=== PATIENT | male | born 1945 | race Caucasian/White ===

== ENCOUNTER 2020-11-05 18:12 | Emergency (ER) | payer OTHER ==
[~2020-11-05] VITALS: Ht 182.9 cm; Wt 118.2 kg
[2020-11-05] MEDS ORDERED: SODIUM CHLORIDE 0.9% 1,700 ML IV ONE (19:15)
[2020-11-05] MEDS ORDERED: CefTRIAXone 1 GM/DEXTROSE 50 ML IV ONE (19:15)
[2020-11-05] MEDS ORDERED: SODIUM CHLORIDE 0.9% 1,000 ML IV ONE (19:15)
[2020-11-05 19:21] LABS: COVID AG,FIA SOURCE NASOPHARYNGEAL
[2020-11-05 19:25] LABS: BASOPHILS % (AUTO) 0.3 % (0.0-2.0); EOSINOPHILS % (AUTO) 0 % (1.0-6.0); HEMATOCRIT 36.6 % (41-53); LYMPHOCYTES # (AUTO) 0.7 K/uL (1.0-4.8); LYMPHOCYTES % (AUTO) 3.8 % (22.0-44.0); MEAN CORPUSCULAR HEMOGLOBIN 32.3 pg (26.0-34.0); MEAN CORPUSCULAR HGB CONC 32.8 G/dL (31.0-37.0); MEAN CORPUSCULAR VOLUME 98 fL (80-100); MONOCYTES # (AUTO) 1.4 K/uL (0.1-1.0); MONOCYTES % (AUTO) 7.8 % (2.0-9.0); NEUTROPHILS # (AUTO) 16.3 K/uL (1.8-7.7); PLATELET COUNT (AUTO) 294 K/uL (150-450); RED BLOOD CELL COUNT(AUTO) 3.72 MIL/uL (4.50-5.90)
[2020-11-05 19:27] LABS: NEUTROPHILS % (AUTO) 88.1 % (40.0-70.0)
[2020-11-05 19:35] LABS: CALCIUM, TOTAL 8.8 mg/dL (8.8-10.5); CREATININE 1.63 mg/dL (0.60-1.30); POTASSIUM 4.8 mmol/L (3.5-5.1)
[2020-11-05 19:56] LABS: PLATELET MORPHOLOGY COMMENT LARGE PLTS PRESENT
[2020-11-05 20:01] LABS: ALBUMIN 2.7 g/dL (3.4-5.0); BILIRUBIN,TOTAL 0.9 mg/dL (0.1-1.0); TOTAL PROTEIN, SERUM 7.8 g/dL (6.4-8.2)
[2020-11-05] MEDS ORDERED: ASPIRIN 325 MG TABLET PO ONE (20:30)
[2020-11-05] MEDS ORDERED: AZITHROMYCIN 500 MG/NS 250 ML IV ONE (20:30)
[2020-11-05 21:25] LABS: INFLUENZA TYPE A NEGATIVE FOR TYPE A (NEGATIVE); INFLUENZA TYPE B NEGATIVE FOR TYPE B (NEGATIVE)
[2020-11-05 21:38] VITALS: BP 119/75
[2020-11-05] MEDS ORDERED: ACETAMINOPHEN 500 MG TABLET ONE (21:47)
[2020-11-05] MEDS ORDERED: ACETAMINOPHEN 500 MG TABLET PO ONE (22:00)
[2020-11-06 00:10] LABS: GLUCOSE,POINT OF CARE 220 MG/DL (70-110)
== END 2020-11-06 00:50 | disposition short-term general hospital (02) ==
LOC: EMS 18:14
DX: A41.9 Sepsis, unspecified organism (principal); R65.20 Severe sepsis without septic shock; I50.9 Heart failure, unspecified; N17.9 Acute kidney failure, unspecified; E11.65 Type 2 diabetes mellitus with hyperglycemia; J18.9 Pneumonia, unspecified organism; R77.8 Other specified abnormalities of plasma proteins; E44.0 Moderate protein-calorie malnutrition; Z20.822 Contact with and (suspected) exposure to COVID-19; Z68.35 Body mass index [BMI] 35.0-35.9, adult; Z86.73 Personal history of transient ischemic attack (TIA), and cerebral infarction without residual deficits
CPT/HCPCS: 36415; 71045; 80053; 82550; 82962; 83605; 83690; 83880; 84484; 85025; 87040; 87426; 87804; 93005; 99291; J0456; J0696; J7030; 96365; 96367

== ENCOUNTER 2024-01-15 15:47 | Emergency (ER) | payer OTHER ==
[~2024-01-15] VITALS: Ht 182.9 cm; Wt 100.0 kg
[2024-01-15 15:56] VITALS: TEMP 98.3
[2024-01-15] MEDS ORDERED: LISI-893 PO (16:05)
[2024-01-15] MEDS ORDERED: ATOR40TA28 PO (16:05)
[2024-01-15] MEDS ORDERED: TAMS0.4C94 PO (16:05)
[2024-01-15] MEDS ORDERED: MULT9LIQ7 PO (16:05)
[2024-01-15] MEDS ORDERED: METO50 PO (16:05)
[2024-01-15] MEDS ORDERED: CHOL500043 PO (16:05)
[2024-01-15] MEDS ORDERED: FINA-27 PO (16:05)
[2024-01-15] MEDS ORDERED: DABI150C2 PO (16:05)
[2024-01-15] MEDS ORDERED: CYAN-119 PO (16:05)
[2024-01-15] MEDS ORDERED: FURO40TA6 PO (16:05)
[2024-01-15 19:15] LABS: APPEARANCE,URINE TURBID (CLEAR); BILIRUBIN,URINE NEGATIVE (NEGATIVE); COLOR,URINE YELLOW (YELLOW); GLUCOSE, URINE (UA) 150-200 mg/dL (NEGATIVE); KETONES,URINE NEGATIVE (NEGATIVE); LEUKOCYTE ESTERASE ,URINE LARGE (NEGATIVE); NITRATE,URINE POSITIVE (NEGATIVE); OCCULT BLOOD,URINE LARGE (NEGATIVE); PH,URINE 7.5 (5.0-8.0); PROTEIN,URINE 100-200,SEE CONFIRM mg/dL (NEGATIVE); UROBILINOGEN,URINE <=1.0 mg/dL (<=1.0)
[2024-01-15 19:35] LABS: CALCIUM, TOTAL 9.1 mg/dL (8.8-10.5); CREATININE 1.89 mg/dL (0.60-1.30)
[2024-01-15 19:40] LABS: BASOPHILS % (AUTO) 0.5 % (0.0-2.0); EOSINOPHILS % (AUTO) 0.1 % (1.0-6.0); HEMATOCRIT 41.6 % (41-53); HEMOGLOBIN 13.9 g/dL (13.5-17.5); LYMPHOCYTES # (AUTO) 0.7 K/uL (1.0-4.8); LYMPHOCYTES % (AUTO) 4.6 % (22.0-44.0); MEAN CORPUSCULAR HEMOGLOBIN 33.1 pg (26.0-34.0); MEAN CORPUSCULAR HGB CONC 33.3 G/dL (31.0-37.0); MEAN CORPUSCULAR VOLUME 100 fL (80-100); NEUTROPHILS # (AUTO) 12.9 K/uL (1.8-7.7); PLATELET COUNT (AUTO) 308 K/uL (150-450); RED BLOOD CELL COUNT(AUTO) 4.18 MIL/uL (4.50-5.90); RED CELL DISTRIBUTION WIDTH 14.3 % (11.5-14.5); WHITE BLOOD COUNT (AUTO) 14.7 K/uL (4.5-11.0)
[2024-01-15 19:41] LABS: NEUTROPHILS % (AUTO) 87.8 % (40.0-70.0)
[2024-01-15 19:53] LABS: BACTERIA,URINE Moderate /HPF (None Seen); WBC,URINE 51-100 /HPF (0-5)
[2024-01-15 19:54] LABS: SQUAMOUS EPITHELIAL CELL,UR Few /LPF (None Seen); SULFOSALICYLIC ACID,URINE Trace (Negative)
[2024-01-15] MEDS: CefTRIAXone 1 GM/DEXTROSE 50 ML IV ONE (20:24)
[2024-01-15 20:38] LABS: LACTIC ACID 1.6 mmol/L (0.4-2.0)
[2024-01-15] MEDS ORDERED: CEPH-558 PO (20:48)
[2024-01-15 21:20] VITALS: BP 146/75; PULSE 84; RESP 18; O2SAT 97
== END 2024-01-15 21:31 | disposition home or self-care (01) ==
LOC: EMS 15:47
DX: T83.098A Other mechanical complication of other urinary catheter, initial encounter (principal); N39.0 Urinary tract infection, site not specified; E11.9 Type 2 diabetes mellitus without complications; Z88.2 Allergy status to sulfonamides; Z86.73 Personal history of transient ischemic attack (TIA), and cerebral infarction without residual deficits; Z87.440 Personal history of urinary (tract) infections; Z79.02 Long term (current) use of antithrombotics/antiplatelets; Z98.890 Other specified postprocedural states; Z79.899 Other long term (current) drug therapy; Y84.6 Urinary catheterization as the cause of abnormal reaction of the patient, or of later complication, without mention of misadventure at the time of the procedure
CPT/HCPCS: 99284; 51705; 96365; 80048; 81001; 83605; 85025; 87040; 87077; 87086; 36415; 82962; J0696; 81002; 87185; 87186

== ENCOUNTER 2024-10-05 16:05 | Emergency (ER) | payer OTHER ==
[~2024-10-05] VITALS: Ht 182.9 cm; Wt 100.0 kg
[~2024-10-05 16:05] MED LIST: ATOR40TA28 PO; CEPH-558 PO; CHOL500043 PO; CYAN-119 PO; DABI150C2 PO; FINA-27 PO; FURO40TA6 PO; LISI-893 PO; METO50 PO; MULT9LIQ7 PO; TAMS0.4C94 PO
[2024-10-05 16:11] VITALS: BP 166/87; PULSE 92; RESP 18; TEMP 98.5; O2SAT 98
== END 2024-10-05 18:13 | disposition home or self-care (01) ==
LOC: EMS 16:05
DX: T83.018A Breakdown (mechanical) of other urinary catheter, initial encounter (principal); E11.9 Type 2 diabetes mellitus without complications; Z79.01 Long term (current) use of anticoagulants; Z98.890 Other specified postprocedural states; Z88.2 Allergy status to sulfonamides; Z86.73 Personal history of transient ischemic attack (TIA), and cerebral infarction without residual deficits; Z79.899 Other long term (current) drug therapy; Y92.89 Other specified places as the place of occurrence of the external cause
CPT/HCPCS: 51702; 99284; Z7502

== ENCOUNTER 2025-03-04 21:16 | Emergency (ER) | payer OTHER ==
[~2025-03-04] VITALS: Ht 182.9 cm; Wt 100.0 kg
[~2025-03-04 21:16] MED LIST changes: -CEPH-558 PO
[2025-03-04 21:29] VITALS: BP 156/84; PULSE 88; RESP 16; TEMP 98.6; O2SAT 97
[2025-03-04 23:05] LABS: APPEARANCE,URINE CLEAR (CLEAR); GLUCOSE, URINE (UA) NEGATIVE (NEGATIVE); LEUKOCYTE ESTERASE ,URINE LARGE (NEGATIVE); NITRATE,URINE POSITIVE (NEGATIVE); OCCULT BLOOD,URINE MODERATE (NEGATIVE); SPECIFIC GRAVITIY, URINE 1.014 (1.003-1.030)
[2025-03-04 23:16] LABS: CALCIUM OXALATE CRYSTALS,UR Few /LPF (None Seen); SQUAMOUS EPITHELIAL CELL,UR Few /LPF (None Seen)
[2025-03-04] MEDS ORDERED: CEPH-558 PO (23:19)
[2025-03-05] MEDS: CefTRIAXone SODIUM 1 GM/VIAL IM ONE (00:39)
[2025-03-05] MEDS: LIDOCAINE/PF 1% 2 ML VIAL IM ONE (00:39)
== END 2025-03-05 00:46 | disposition home or self-care (01) ==
LOC: EMS 21:16
DX: T83.091A Other mechanical complication of indwelling urethral catheter, initial encounter (principal); N39.0 Urinary tract infection, site not specified; E11.9 Type 2 diabetes mellitus without complications; E78.00 Pure hypercholesterolemia, unspecified; I10 Essential (primary) hypertension; Z79.01 Long term (current) use of anticoagulants; Z79.899 Other long term (current) drug therapy; Z98.890 Other specified postprocedural states; Z88.2 Allergy status to sulfonamides; Y73.8 Miscellaneous gastroenterology and urology devices associated with adverse incidents, not elsewhere classified
CPT/HCPCS: 99284; 81001; 82962; 87077; 87086; 51702; 96372; J0696; J3490; 87186